=== PATIENT | female | born 1970 | race Two or more races ===

== ENCOUNTER 2019-04-27 13:30 | Emergency (ER) | payer MEDICAID, OTHER ==
[~2019-04-27] VITALS: Ht 175.3 cm; Wt 88.0 kg
[2019-04-27 14:06] LABS: Urine Bacteria NONE SEEN /hpf (None Seen); Urine Blood 1+ /uL (Negative); Urine Specific Gravity 1.006 (1.001-1.035); Urine WBC <1 /hpf (0 - 5)
[2019-04-27 14:37] LABS: Albumin 4.1 g/dL (3.4-5.0); BUN/Creatinine Ratio 14.5; Calcium 9.3 mg/dL (8.5-10.1)
[2019-04-27 14:40] LABS: Bilirubin, Total 0.5 mg/dL (0.2-1.0); Total Protein 8.1 g/dL (6.4-8.2)
[2019-04-27 14:51] LABS: Basophils # (auto) 0 uL; Basophils % (auto) 0.3 % (0.0-2.0); Eosinophils # (auto) 0.7 uL; Eosinophils % (auto) 6.5 % (0.0-7.0); Hematocrit 46.3 % (36.0-46.0); Hemoglobin 15.4 g/dL (12.2-16.2); Lymphocytes # (auto) 4.4 uL; Lymphocytes % (auto) 39.9 % (10.0-50.0); Mean Corpuscular Hgb Conc. 33.3 g/dL (32.0-36.0); Monocytes # (auto) 0.9 uL; Monocytes % (auto) 8.5 % (0.0-12.0); Neutrophils % (auto) 44.8 % (37.0-80.0); Nucleated Red Blood Cells % 0.1 %; Platelet Count (auto) 419 10^3/uL (140-450); Red Blood Cells 5.14 10^6/uL (4.0-5.20); Red Cell Distribution Width 13.5 % (11.8-14.3); White Blood Cell 11.1 10^3/uL (4.4-10.8)
[2019-04-27 18:00] VITALS: BP 140/80
== END 2019-04-27 18:15 | disposition home or self-care (01) ==
LOC: ER 13:39
DX: R10.31 Right lower quadrant pain (principal); R11.10 Vomiting, unspecified; R42 Dizziness and giddiness; E78.5 Hyperlipidemia, unspecified; Z91.013 Allergy to seafood; Z87.442 Personal history of urinary calculi
CPT/HCPCS: 36415; 74176; 80053; 81001; 85025

== ENCOUNTER 2019-07-24 23:36 | Emergency (ER) | payer MEDICAID ==
[~2019-07-24] VITALS: Ht 175.3 cm; Wt 88.5 kg
[2019-07-25 00:46] LABS: Basophils # (auto) 0.2 uL; Basophils % (auto) 1.4 % (0.0-2.0); Eosinophils # (auto) 0.7 uL; Eosinophils % (auto) 5.8 % (0.0-7.0); Hematocrit 42.5 % (36.0-46.0); Hemoglobin 14.1 g/dL (12.2-16.2); Lymphocytes # (auto) 3.8 uL; Lymphocytes % (auto) 31.2 % (10.0-50.0); Mean Corpuscular Hemoglobin 29.7 pg (28.0-32.0); Mean Corpuscular Hgb Conc. 33.1 g/dL (32.0-36.0); Mean Corpuscular Volume 89.8 fL (80.0-100.0); Monocytes % (auto) 8.5 % (0.0-12.0); Neutrophils # (auto) 6.4 uL; Neutrophils % (auto) 53.1 % (37.0-80.0); Nucleated Red Blood Cells % 0.1 %; Platelet Count (auto) 372 10^3/uL (140-450); Red Blood Cells 4.73 10^6/uL (4.0-5.20); Red Cell Distribution Width 13.2 % (11.8-14.3)
[2019-07-25 00:46] LABS: Urine Bacteria FEW /hpf (None Seen); Urine Blood Negative /uL (Negative); Urine Mucus FEW (None Seen); Urine Specific Gravity 1.022 (1.001-1.035); Urine WBC 34 /hpf (0 - 5)
[2019-07-25 00:59] LABS: INR 0.95 (0.9-1.15); Partial Thromboplastin Time 27.1 sec (23.64-32.05)
[2019-07-25 03:02] LABS: Albumin 3.8 g/dL (3.4-5.0); BUN/Creatinine Ratio 17.3; Bilirubin, Total 0.3 mg/dL (0.2-1.0); Calcium 8.8 mg/dL (8.5-10.1); Magnesium 2.3 mg/dL (1.6-2.6); Potassium 3.8 mmol/L (3.5-5.1); Total Protein 7.3 g/dL (6.4-8.2)
[2019-07-25] MEDS ORDERED: SODIUM CHLORIDE 0.9% 1,000 ML IV ONE (07:10)
[2019-07-25] MEDS ORDERED: PROMETHAZINE HCL 25 MG/ML 1ML IV PRN (07:15)
[2019-07-25] MEDS ORDERED: KETOROLAC TROMETH 30 MG/ML 1ML VIAL IV ONE (07:15)
[2019-07-25] MEDS ORDERED: cefTRIAXone 1GM/50ML D5W 50 ML IV ONE (07:15)
[2019-07-25 11:11] VITALS: BP 136/67
== END 2019-07-25 11:18 | disposition home or self-care (01) ==
LOC: ER 23:39
DX: N39.0 Urinary tract infection, site not specified (principal); E78.5 Hyperlipidemia, unspecified; G56.00 Carpal tunnel syndrome, unspecified upper limb; Z87.442 Personal history of urinary calculi
CPT/HCPCS: 36415; 74176; 80053; 81001; 82150; 83690; 83735; 85025; 85610; 85730; 96365; 96375; 99284; J0696; J1885; J2550; J7030

== ENCOUNTER 2025-04-22 11:49 | Emergency (ER) | payer MEDICAID ==
[~2025-04-22] VITALS: Ht 175.3 cm; Wt 89.8 kg
--- NOTE | 2025-04-22 12:56 | DVH ---
INDICATION: Fall TECHNIQUE: 4 radiographic views of the left wrist were obtained. COMPARISON: None Findings/impression: Nondisplaced distal radial fracture.
[2025-04-22 13:05] VITALS: BP 149/86; PULSE 79; RESP 16; TEMP 98.7; O2SAT 98
--- NOTE | 2025-04-22 13:09 | ED.PDOC ---
Musculoskeletal HPI Comments A 54-year-old female with a past medical history of COPD, osteoarthritis, fibromyalgia, hyperlipidemia presents to the emergency department with a chief complaint of LT wrist pain s/p fall onset today (04/22/25) around 11:30. Patient states she was at [facility], walking on rocks, tripped, fell and landed on LT hand, hit her head on rocks, experienced a few seconds of LOC. Fall was witnessed by patient's sister. She is currently expereincing headache as well as LT wrist pain, unable to flex hand due to pain. No other symptoms or modifying factors present at this time. Denies previous surgeries to the wrist Denies redness or swelling around the ankle Denies fever chills night sweats nausea vomiting Denies photophobia, phonophobia Denies family history of brain issues persistent headaches Denies taking any blood thinner medication Denies vision/hearing changes Denies focal loss of strength/sensation or changes in speech Chief Complaint: Upper Extremity Time Seen by MD: 12:55 Primary Care Provider: Reviewed Notes: Medications, Allergies Allergies: Coded Allergies: Shellfish Allergy (Verified Allergy, Severe, 04/27/19) Information Source: Patient Mode of Arrival: Ambulatory Location: Left Extremity Location: Wrist Timing: Hours Prehospital treatment: Pain Meds ([place]) Severity: Moderate Able to Move Extremity: No Bear Weight: Limited Pain: Moderate Hand Dominance: Right Mechanism: Blunt Trauma Circumstances: Fall Onset of Symptoms: After Trauma Symptoms: Swelling, Pain DVT Risk Factors: NONE Associated signs and symptoms: Wrist pain (LT) Past Medical History PAST MEDICAL HISTORY: COPD, High Lipids, Kidney Stones Past Medical History (Other): fibromyalgia, osteoarthritis Surgical History: Denies all surgeries GRAPHICS MANAGER History: No Pertinent GRAPHICS MANAGER History Family History Family History: Unknown Social History Smoker: Cigarettes Alcohol: Occasionally Drugs: Denies Drug Use Lives In: Home All Other Systems: Reviewed and Negative (as per HPI) Physical Exam General Appearance: Normal HEENT: Normal ENT Inspection, Pharynx Normal, TMs Normal Neck: Full Range of Motion, Non-Tender, Normal, Normal Inspection Respiratory: Chest Non-Tender, Lungs Clear, No Accessory Muscle Use, No Respiratory Distress, Normal Breath Sounds Cardiovascular: No Edema, No JVD, No Murmur, No Gallop, Normal Peripheral Pulses, Regular Rate/Rhythm Breast Exam: Deferred Gastrointestinal: No Organomegaly, Non Tender, No Pulsatile Mass, Normal Bowel Sounds, Soft Genitalia: Deferred Pelvic: Deferred Rectal: Deferred Extremities: No calf tenderness, Normal capillary refill, No pedal edema Musculoskeletal : Location: Left Extremity Location: Wrist (LT wrist. soft tissue swelling noted, dorsal aspect distal radius. No surrounding erythema, no other deformity noted. Unable to flex hand due to pain.Nueral vascular sensation intact. Radial pulses strong. ) Apperance: Normal Neurologic: Alert, air conditioning sheet metal installer II-XII nml as Tested, No Motor Deficits, Normal Affect, Normal Mood, No Sensory Deficits Cerebellar Function: Normal Reflexes: Normal Skin: Dry, Normal Color, Warm Lymphatic: No Adenopathy Was a procedure done? Was a procedure done?: No Differential Diagnosis EXT Differential Diagnosis: Fracture, Dislocation X-Ray, Labs, Meds, VS Vital Signs Date Time Temp Pulse Resp B/P (MAP) Pulse Ox O2 Delivery O2 Flow Rate FiO2 04/22/25 13:05 98.7 79 16 149/86 (107) 98 98.7 04/22/25 13:05 79 16 98 Room Air 04/22/25 12:06 99.0 75 17 153/93 (113) 98 99.0 DIAGNOSTIC IMAGING Diagnostic Imaging Report : [id number] Signed PATIENT: NUBIA OLMSTEAD ACCT: [id number] UNIT: [id number] : 1970 LOC: ER ROOM / BED: / AGE / SEX: 54 / F ADM STATUS: REG ER SERVICE 1215 ORDERING PHYSICIAN: AMILACR MANJARREZ NP PROCEDURE(s): LWRI - L WRIST 3+ VIEW XRAY REASON: Fall ORDER NUMBER(s): [id number], ACCESSION NUMBER(s): [id number] INDICATION: Fall TECHNIQUE: 4 radiographic views of the left wrist were obtained. COMPARISON: None Findings/impression: Nondisplaced distal radial fracture. ATED BY: OMAR HILL MD DICTATED DATE/TIME: 04/22/25 1253 SIGNED BY: OMAR HILL MD SIGNED DATE/TIME: 04/22/25 125 CC: X-Ray, Labs, Meds, VS Comment A 54-year-old female with a past medical history of COPD, osteoarthritis, fibromyalgia, hyperlipidemia presents to the emergency department with a chief complaint of LT wrist pain s/p fall onset today (04/22/25) around 11:30. Patient arrives alert and oriented, ABC's intact, afebrile, vital signs stable, saturating well in room air Diagnostic imaging ordered by me and results interpreted by radiology : L WRIST 3+ VIEW XRAY Findings: Fracture Patient does not currently demonstrate complications of fracture such as compartment syndrome, arterial or nerve injury. Interventions: Disposition: Patient will be discharged with strict return precautions and follow up with primary MD within 24-48 hours for further evaluation including referral to an orthopedist for follow up within the next 4-7 days for outpatient definitive fracture management. Immobilization: Thumb Spica NSAID's prn Needs Ortho f/u Additional MDM Review of External, Non-ED records: External records reviewed. Discussion with independent historian (EMS, family) history obtained from the patient/parents (if applicable) at bedside Chronic conditions affecting care: COPD, HLD, osteoarthritis, fibromyalgia Social determinants of health affecting care: None Consideration of admission (observation or admission): I considered escalation of care to admission for this patient, however given the reassuring workup, the patient is safe for outpatient management. Time of 1ST Reevaluation: 13:25 Reevaluation 1ST: Improved Patient Education/Counseling: Diagnosis, Treatment, Prognosis Family Education/Counseling: Other Departure 1 Departure Time of Disposition: 13:08 Impression: Primary Impression: Distal radial fracture Qualified Codes: S52.502A - Unspecified fracture of the lower end of left radius, initial encounter for closed fracture Disposition: 01 HOME / SELF CARE / HOMELESS Condition: Stable Critical Care Note Critical Care Time?: No Stability Stability form required: No Heart Score Heart Score: Heart Score Response (Comments) Value History N/A 0 EKG N/A 0 Age N/A 0 Risk Factors N/A 0 Troponin N/A 0 Total 0 I personally scribed for AMILCAR MANJARREZ NP ([email or web address]) on 04/22/25 at 13:27. Electronically submitted by Nathalie Graham ([email or web address]). AMILCAR MANJARREZ NP Apr 22, 2025 13:09
== END 2025-04-22 13:43 | disposition home or self-care (01) ==
LOC: ER 11:49
DX: S52.502A Unspecified fracture of the lower end of left radius, initial encounter for closed fracture (principal); F17.210 Nicotine dependence, cigarettes, uncomplicated; W19.XXXA Unspecified fall, initial encounter; Y93.89 Activity, other specified; Y92.89 Other specified places as the place of occurrence of the external cause; Y99.8 Other external cause status
CPT/HCPCS: 29125; 73110

== ENCOUNTER 2025-06-16 13:11 | Emergency (ER) | payer MEDICAID ==
[~2025-06-16] VITALS: Ht 175.3 cm; Wt 87.0 kg
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
[2025-06-16] MEDS ORDERED: PROP80CA40 PO (21:04)
--- NOTE | 2025-06-16 21:07 | DVHINCON2 ---
Date of Service if different f: Jun 16, 2025 Consultation ([facility]) Progress: Somewhat better Appetite: Good Side effects of medications: No Appearance: Stated age Psychomotor activity: WNL Behavioral: Cooperative Eye contact: Appropriate Speech: WNL Affect: Appropriate, Mood Congruent Mood: Euthymic Thought processes: Linear/Goal-directed, Tangential Thought content: WNL Suicidal ideations: Absent Homicidal ideations: Absent Orientation: Person, Place, Time, Situation Memory intact: Recent Intellect: Above average Abstractability: WNL Concentration: Adequate Attention: Adequate Judgement: WNL Insight: Good Vitals Vital Signs Date Time Temp Pulse Resp B/P (MAP) Pulse Ox O2 Delivery O2 Flow Rate FiO2 06/16/25 13:13 98.3 120 18 171/126 96 98.3 Treatment plan discussed: With staff Medication adjusted: Yes Labs ordered: No Psychotherapy provided: Yes Type: Voluntary Diagnosis: ADHD combined type by history. MDD R mild. Plan : The pt has some thoughts of wanting to hurt people when she feels upset, but she feels very guilty about such thoughts. She would never act on these thoughts and denies wanting to . Pt is a practicing Tenriism and does not want to go to [employer]. Pt has an upcoming therapy appt on Tuesday and is looking forward to talking about many things on her mind. The pt is very distractible and jovial (appropriately so) with a bright, full range of affect, punctuated by small bouts of tearfulness when discussing her who in 2018 and she had known him since she was 15. Pt may have some unresolved grief and loss from that and the loss of a job recently. Pt may also have issues related to menopause where here memory and muscle mass is getting effected. Pt given info about getting an endocrine consult and exploring HRT for relief from the post- menopausal symptoms. Pt given info about using Magnesium Glycinate to help with sleep and anxiety as well as LiShopseen Kishore mushroom for helping with memory. Pt offered inderal 80 mg ER to help with the anger outbursts and hyperactivity which she is finding increasing intolerable since she has to be home and not working. Pt is not a DTS/DTO and not psychotic and can be discharged home when medically stable. History of Present Illness Reason for Consult : I just feel really emotional daily. HPI : Pt says that she has been crying a lot, has been asking God to take her! Today she felt angry and wanted to be violent. Pt takes Cymbalta for several years. Pt has fibromyalgia. Has diagnosis of ADHD, depression and was started on Cymbalta for menopause related mood changes. Pt has been feeling some mild depression with disinterest at times, some lowness of energy and motivation with bouts of anger. Pt feels a lot of guilt for even having thoughts of anger where she thinks ill for others momentarily. Pt is not a violent person. She worries too much about how she is perceived. She has been unable to work on her cars (something she enjoys greatly) and since hurting her left wrist has not been able to do that to the extent she would like. Pt wants to try something to help with these bouts of anger and crying at times. Pt has also been experiencing a reduction in working memory and loss of muscle mass. 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 This has impacted her self-esteem and self-worth negatively as well. Pt denies any SI and cites her Tenriism beliefs as being a protective factor. Denies HI and AVH. Past Psychiatric History : OP treatment only. Past Medical History : Possible HTN, Fibromyalgia and other joint pains. Social History : Pt is an ex-smoker. Denies drug use. Assessment/Diagnosis/Plan Reviewed: Consults, Care Plan, Labs, Medications SERENE MOTT MD Jun 16, 2025 21:07
[2025-06-16] MEDS: PROPRANOLOL HCL 20 MG TAB PO ONE (22:15)
[2025-06-16] MEDS: LORazepam 2MG/ML-1ML VIAL IM ONE (22:20)
[2025-06-16 23:21] VITALS: O2SAT 98
[2025-06-16 23:24] VITALS: BP 145/99; PULSE 92; RESP 18; TEMP 98.6; O2SAT 98
== END 2025-06-16 23:27 | disposition home or self-care (01) ==
LOC: ER 13:11
DX: F29 Unspecified psychosis not due to a substance or known physiological condition (principal); I16.0 Hypertensive urgency; F17.210 Nicotine dependence, cigarettes, uncomplicated; J44.9 Chronic obstructive pulmonary disease, unspecified; E78.5 Hyperlipidemia, unspecified
CPT/HCPCS: 96372; 99284; J2060